=== PATIENT | male | born 1935 | race Caucasian/White ===

== ENCOUNTER 2018-02-15 03:39 | Day surgery (SDC) | payer OTHER, MEDICARE ==
[~2018-02-15] VITALS: Ht 177.8 cm; Wt 89.0 kg
[~2018-02-15 03:39] MED LIST: ACET120S; AMIO200 PO; AMOX500 PO; ASPI81CH PO; ASPI81EC PO; ATEN25 PO; Acetaminophen1 EAC2 PO; B Complex1 EAC2 PO; CEFP200 PO; CEPH500 PO; CYCL0.05OP; Coumadin2.5 MG PO; DRON400T; Desyrel50 MG PO; FENO160 PO; FINA5 PO; FISH1000 PO; GEMF600 PO; HYDACE5 PO; HYDACE7.5 PO; Hydrocodone-Ap1 EA23 PO; Jantoven5 MG PO; LEVSOD125 PO; LEVSOD175 PO; LEVSOD50 PO; LORA.5 PO; MESA400ER; MIRT15 PO; OXYB5 PO; OXYB5ER PO; PRAV20; PRAV20 PO; PRED10 PO; PRED20 PO; PRED5; Pravachol40 MG PO; REMICADE; REMICADE IV; Remicade100 MG; Synthroid100 MCG PO; Synthroid112 MCG PO; TAMS.4ER PO; TRAZ100 PO; TRAZ50 PO; TYLENOL ES; Tylenol325 MG PO; UBID10; UBID100 PO; VITAMIN D-32000 UNIT PO; WARF1 PO; WARF2.5 PO; WARF5 PO; ZALE5 PO; [UNRECOGNIZED DRUG - OTHER]; [UNRECOGNIZED DRUG - REMARK]
== END 2018-02-15 11:30 | disposition home or self-care (01) ==
LOC: MHTC 03:39
PROC: 0JPT0PZ Removal of Cardiac Rhythm Related Device from Trunk Subcutaneous Tissue and Fascia, Open Approach (ICD-10-PCS; principal; 2018-02-15)
PROC: 0JH606Z Insertion of Pacemaker, Dual Chamber into Chest Subcutaneous Tissue and Fascia, Open Approach (ICD-10-PCS; principal; 2018-02-15)
DX: Z45.010 Encounter for checking and testing of cardiac pacemaker pulse generator [battery] (principal); I49.5 Sick sinus syndrome; I48.0 Paroxysmal atrial fibrillation; E78.5 Hyperlipidemia, unspecified; E03.9 Hypothyroidism, unspecified; Z79.82 Long term (current) use of aspirin; Z87.891 Personal history of nicotine dependence
CPT/HCPCS: 33228; 99152; 99153; C1785; J1644; J2250; J3010; J3370; J7030; J7040

== ENCOUNTER 2020-05-09 07:14 | Emergency (ER) | payer OTHER, MEDICARE ==
[~2020-05-09] VITALS: Ht 180.3 cm; Wt 81.7 kg
[2020-05-09 07:41] LABS: Base Excess Venous 0 mmol/L; Bicarbonate Venous 24.4 mmol/L (24.0-30.0); PCO2 Venous 29.6 mmHg (38-42); PO2 Venous 24.9 mmHg (38-42)
[2020-05-09 07:50] LABS: BASOPHILS ABSOLUTE AUTO 0.06 K/mm3 (0.00-0.23); BASOPHILS PERCENT AUTO 1 % (0-2); EOSINOPHILS ABSOLUTE AUTO 0.17 K/mm3 (0.00-0.68); EOSINOPHILS PERCENT AUTO 2 % (0-6); Hematocrit 44.1 % (37.0-53.0); Hemoglobin 15.5 g/dL (13.5-17.5); IMMATURE GRAN ABSOLUTE AUTO 0.02 K/mm3 (0.00-0.10); IMMATURE GRAN PERCENT AUTO 0 % (0-1); LYMPHOCYTES ABSOLUTE AUTO 1.91 K/mm3 (0.84-5.20); LYMPHOCYTES PERCENT AUTO 24 % (21-46); MONOCYTES ABSOLUTE AUTO 0.64 K/mm3 (0.16-1.47); MONOCYTES PERCENT AUTO 8 % (4-13); Mean Corpuscular HGB 33.2 pg (26.0-34.0); Mean Corpuscular HGB Conc 35.1 g/dL (31.5-36.5); Mean Corpuscular Volume 94 fL (80-100); Mean Platelet Volume 9.6 fL (9.1-12.4); NEUTROPHILS ABSOLUTE AUTO 5.18 K/mm3 (1.96-9.15); NEUTROPHILS PERCENT AUTO 65 % (41-73); Platelet Count 254 K/mm3 (150-400); RDW Coefficient Variation 12.7 % (11.7-14.2); RDW Standard Deviation 43.4 fL (35.1-46.3); Red Blood Cell Count 4.67 M/mm3 (4.30-5.90); White Blood Cell Count 7.98 K/mm3 (4.00-11.30)
[2020-05-09 08:58] LABS: Troponin I <0.015 ng/mL (0.000-0.040)
[2020-05-09 09:02] LABS: Alanine Aminotransfer (ALT/SGP 24 U/L (12-78); Albumin, Blood 4.3 g/dL (3.4-5.0); Albumin/Globulin Ratio 0.9 (0.8-1.8); Alk Phos 112 U/L (50-136); Anion Gap 8 mmol/L (6-16); Aspartate Aminotrans (AST/SGOT 21 U/L (12-37); Bilirubin, Total 0.6 mg/dL (0.1-1.0); Blood Urea Nitrogen 30 mg/dL (8-24); Bun/Creatinine Ratio 33.9 (12.0-20.0); CO2, Blood 25 mmol/L (21-32); Calcium, Blood 9.5 mg/dL (8.5-10.1); Chloride, Blood 105 mmol/L (98-108); Creatinine, Blood 0.89 mg/dL (0.60-1.20); Globulin, Blood 4.7 g/dL (2.2-4.0); Glomerular Filtration Rate >60 (60-); Glucose, Blood 101 mg/dL (70-99); Potassium, Blood 3.7 mmol/L (3.5-5.5); Sodium, Blood 138 mmol/L (136-145)
[2020-05-09] MEDS ORDERED: HYDHCL25 PO (12:26)
== END 2020-05-09 12:19 | disposition home or self-care (01) ==
LOC: ER 07:14
PROVIDERS: Emergency Medicine
DX: R55 Syncope and collapse (principal); R00.2 Palpitations; F41.9 Anxiety disorder, unspecified; R06.02 Shortness of breath; R20.2 Paresthesia of skin; Z91.041 Radiographic dye allergy status; Z88.8 Allergy status to other drugs, medicaments and biological substances; Z88.2 Allergy status to sulfonamides; Z88.1 Allergy status to other antibiotic agents; Z79.899 Other long term (current) drug therapy; Z79.01 Long term (current) use of anticoagulants; Z95.1 Presence of aortocoronary bypass graft; Z87.891 Personal history of nicotine dependence
CPT/HCPCS: 36415; 71045; 71260; 80053; 82803; 83880; 84484; 85025; 93005; 93010; 96374; 96375; 99285-25; J1100; J1200; Q9967

== ENCOUNTER 2021-03-30 17:44 | Emergency (ER) | payer OTHER, MEDICARE ==
[~2021-03-30] VITALS: Ht 180.3 cm; Wt 85.5 kg
[~2021-03-30 17:44] MED LIST changes: +HYDHCL25 PO
[2021-03-30 18:34] LABS: BASOPHILS ABSOLUTE AUTO 0.04 K/mm3 (0.00-0.23); BASOPHILS PERCENT AUTO 1 % (0-2); EOSINOPHILS ABSOLUTE AUTO 0.17 K/mm3 (0.00-0.68); EOSINOPHILS PERCENT AUTO 2 % (0-6); Hematocrit 38.8 % (37.0-53.0); Hemoglobin 13.8 g/dL (13.5-17.5); IMMATURE GRAN ABSOLUTE AUTO 0.05 K/mm3 (0.00-0.10); IMMATURE GRAN PERCENT AUTO 1 % (0-1); LYMPHOCYTES ABSOLUTE AUTO 0.89 K/mm3 (0.84-5.20); LYMPHOCYTES PERCENT AUTO 10 % (21-46); MONOCYTES ABSOLUTE AUTO 0.86 K/mm3 (0.16-1.47); MONOCYTES PERCENT AUTO 10 % (4-13); Mean Corpuscular HGB 33.5 pg (26.0-34.0); Mean Corpuscular HGB Conc 35.6 g/dL (31.5-36.5); Mean Corpuscular Volume 94 fL (80-100); Mean Platelet Volume 10.2 fL (9.1-12.4); NEUTROPHILS ABSOLUTE AUTO 6.65 K/mm3 (1.96-9.15); NEUTROPHILS PERCENT AUTO 77 % (41-73); Platelet Count 282 K/mm3 (150-400); RDW Coefficient Variation 12.2 % (11.7-14.2); RDW Standard Deviation 42.5 fL (35.1-46.3); Red Blood Cell Count 4.12 M/mm3 (4.30-5.90); White Blood Cell Count 8.66 K/mm3 (4.00-11.30)
[2021-03-30 18:51] LABS: Alanine Aminotransfer (ALT/SGP 98 U/L (12-78); Albumin, Blood 2.7 g/dL (3.4-5.0); Albumin/Globulin Ratio 0.5 (0.8-1.8); Alk Phos 90 U/L (50-136); Anion Gap 11 mmol/L (6-16); Aspartate Aminotrans (AST/SGOT 108 U/L (12-37); Bilirubin, Total 0.6 mg/dL (0.1-1.0); Blood Urea Nitrogen 19 mg/dL (8-24); Bun/Creatinine Ratio 19.4 (12.0-20.0); CO2, Blood 23 mmol/L (21-32); Chloride, Blood 102 mmol/L (98-108); Creatinine, Blood 0.98 mg/dL (0.60-1.20); Globulin, Blood 5.6 g/dL (2.2-4.0); Glomerular Filtration Rate >60 (60-); Glucose, Blood 122 mg/dL (70-99); Potassium, Blood 3.5 mmol/L (3.5-5.5); Sodium, Blood 136 mmol/L (136-145); Total Protein, Blood 8.3 g/dL (6.4-8.2); Troponin I <0.015 ng/mL (0.000-0.040)
[2021-03-30 19:58] LABS: Source, Urine Clean Catch
[2021-03-30 20:14] LABS: Appearance, Urine Clear (Clear); Bilirubin, Urine Neg (Neg); Blood, Urine 4+ (Neg); Color, Urine Yellow (P-Yellow); Glucose Qualitative, Urine Neg (Neg); International Normalized Ratio 3.46; Ketones, Urine Neg (Neg); Leukocyte Esterase, Urine Neg (Neg); Nitrite, Urine Neg (Neg); Protein, Urine 3+ (Neg); Prothrombin Time Results 34.8 Sec (9.7-11.5); Urobilinogen, Urine NORM (Normal)
[2021-03-30 20:23] LABS: White Blood Cells, Urine 0-2 /hpf (0-5)
[2021-03-30 20:25] LABS: Bacteria Rare /hpf; Squamous Epithelial Cells Rare /hpf (Few)
[2021-03-30 20:27] LABS: Mucus Mod (0-Heavy)
[2021-03-30] MEDS ORDERED: DOXY100 PO (21:13)
[2021-03-30] MEDS ORDERED: AMOCLA875 PO (21:13)
[2021-03-30] MEDS ORDERED: ONDA4ODT MM (21:13)
== END 2021-03-30 21:29 | disposition home or self-care (01) ==
LOC: ER 17:44
PROVIDERS: Physician Assistant; Student in an Organized Health Care Education/Training Program
DX: J18.9 Pneumonia, unspecified organism (principal); C34.90 Malignant neoplasm of unspecified part of unspecified bronchus or lung; I47.1 Supraventricular tachycardia; R79.1 Abnormal coagulation profile; E86.0 Dehydration; I25.10 Atherosclerotic heart disease of native coronary artery without angina pectoris; I48.91 Unspecified atrial fibrillation; R31.29 Other microscopic hematuria; Z79.01 Long term (current) use of anticoagulants; Z79.899 Other long term (current) drug therapy
CPT/HCPCS: 36415; 71045; 71250; 80053; 81001; 83605; 83735; 83880; 84484; 85025; 85610; 93005; 93010; 96361; 96374; 99285-25; A9270; J3475; J7030

== ENCOUNTER 2021-04-26 04:24 | Inpatient (IN) | payer OTHER, MEDICARE ==
[~2021-04-26] VITALS: Ht 180.3 cm; Wt 85.0 kg
[~2021-04-26 04:24] MED LIST changes: +AMOCLA875 PO; +DOXY100 PO; +EUTHYROX125 MCG PO; -LEVSOD125 PO; +ONDA4ODT MM; -Pravachol40 MG PO
[2021-04-26 04:47] LABS: BASOPHILS ABSOLUTE AUTO 0.01 K/mm3 (0.00-0.23); BASOPHILS PERCENT AUTO 0 % (0-2); EOSINOPHILS ABSOLUTE AUTO 0.05 K/mm3 (0.00-0.68); EOSINOPHILS PERCENT AUTO 1 % (0-6); Hematocrit 45.6 % (37.0-53.0); Hemoglobin 15.9 g/dL (13.5-17.5); IMMATURE GRAN ABSOLUTE AUTO 0.09 K/mm3 (0.00-0.10); IMMATURE GRAN PERCENT AUTO 1 % (0-1); LYMPHOCYTES ABSOLUTE AUTO 0.45 K/mm3 (0.84-5.20); LYMPHOCYTES PERCENT AUTO 5 % (21-46); MONOCYTES ABSOLUTE AUTO 0.24 K/mm3 (0.16-1.47); MONOCYTES PERCENT AUTO 3 % (4-13); Mean Corpuscular HGB Conc 34.9 g/dL (31.5-36.5); Mean Corpuscular Volume 95 fL (80-100); Mean Platelet Volume 10.4 fL (9.1-12.4); NEUTROPHILS ABSOLUTE AUTO 7.98 K/mm3 (1.96-9.15); NEUTROPHILS PERCENT AUTO 91 % (41-73); Platelet Count 300 K/mm3 (150-400); RDW Coefficient Variation 13.7 % (11.7-14.2); RDW Standard Deviation 47.6 fL (35.1-46.3); Red Blood Cell Count 4.82 M/mm3 (4.30-5.90); White Blood Cell Count 8.82 K/mm3 (4.00-11.30)
[2021-04-26] MEDS ORDERED: PRED20 PO (04:50)
[2021-04-26 04:55] LABS: PCO2 Arterial 29.6 mmHg (35-45); PO2 Arterial 74.8 mmHg (80-100); pH Blood Arterial 7.54 (7.35-7.45)
[2021-04-26 05:07] LABS: Alanine Aminotransfer (ALT/SGP 75 U/L (12-78); Albumin, Blood 2.2 g/dL (3.4-5.0); Albumin/Globulin Ratio 0.4 (0.8-1.8); Alk Phos 112 U/L (50-136); Anion Gap 7 mmol/L (6-16); Aspartate Aminotrans (AST/SGOT 56 U/L (12-37); Bilirubin, Total 0.8 mg/dL (0.1-1.0); Blood Urea Nitrogen 24 mg/dL (8-24); Bun/Creatinine Ratio 32.6 (12.0-20.0); CO2, Blood 27 mmol/L (21-32); Chloride, Blood 102 mmol/L (98-108); Creatinine, Blood 0.74 mg/dL (0.60-1.20); Globulin, Blood 5.5 g/dL (2.2-4.0); Glomerular Filtration Rate >60 (60-); Glucose, Blood 134 mg/dL (70-99); Magnesium, Blood 2.4 mg/dL (1.6-2.4); Potassium, Blood 4.1 mmol/L (3.5-5.5); Sodium, Blood 136 mmol/L (136-145); Total Protein, Blood 7.7 g/dL (6.4-8.2); Troponin I <0.015 ng/mL (0.000-0.040)
[2021-04-26 05:17] LABS: Prothrombin Time Results 40.6 Sec (9.7-11.5)
[2021-04-26 05:19] LABS: International Normalized Ratio 4.25
[2021-04-26 06:59] LABS: SARS-Cov-2 (COVID-19) PCR, MMC NEGATIVE (NEGATIVE)
[2021-04-27 03:51] LABS: BASOPHILS ABSOLUTE AUTO 0.01 K/mm3 (0.00-0.23); BASOPHILS PERCENT AUTO 0 % (0-2); EOSINOPHILS PERCENT AUTO 0 % (0-6); Hematocrit 42.6 % (37.0-53.0); Hemoglobin 14.4 g/dL (13.5-17.5); IMMATURE GRAN PERCENT AUTO 1 % (0-1); LYMPHOCYTES ABSOLUTE AUTO 0.27 K/mm3 (0.84-5.20); LYMPHOCYTES PERCENT AUTO 3 % (21-46); MONOCYTES ABSOLUTE AUTO 0.16 K/mm3 (0.16-1.47); MONOCYTES PERCENT AUTO 2 % (4-13); Mean Corpuscular HGB 32.6 pg (26.0-34.0); Mean Corpuscular HGB Conc 33.8 g/dL (31.5-36.5); Mean Corpuscular Volume 96 fL (80-100); Mean Platelet Volume 9.8 fL (9.1-12.4); NEUTROPHILS ABSOLUTE AUTO 8.32 K/mm3 (1.96-9.15); NEUTROPHILS PERCENT AUTO 94 % (41-73); Platelet Count 274 K/mm3 (150-400); RDW Coefficient Variation 13.5 % (11.7-14.2); RDW Standard Deviation 47.8 fL (35.1-46.3); Red Blood Cell Count 4.42 M/mm3 (4.30-5.90); White Blood Cell Count 8.86 K/mm3 (4.00-11.30)
[2021-04-27 04:11] LABS: Prothrombin Time Results 41.3 Sec (9.7-11.5)
[2021-04-27 04:22] LABS: Alanine Aminotransfer (ALT/SGP 54 U/L (12-78); Albumin/Globulin Ratio 0.4 (0.8-1.8); Alk Phos 101 U/L (50-136); Anion Gap 6 mmol/L (6-16); Aspartate Aminotrans (AST/SGOT 27 U/L (12-37); Bilirubin, Total 0.4 mg/dL (0.1-1.0); Blood Urea Nitrogen 23 mg/dL (8-24); Bun/Creatinine Ratio 33.9 (12.0-20.0); CO2, Blood 28 mmol/L (21-32); Chloride, Blood 105 mmol/L (98-108); Creatinine, Blood 0.68 mg/dL (0.60-1.20); Glomerular Filtration Rate >60 (60-); Glucose, Blood 166 mg/dL (70-99); Potassium, Blood 3.8 mmol/L (3.5-5.5); Sodium, Blood 139 mmol/L (136-145)
[2021-04-27 04:28] LABS: International Normalized Ratio 4.33
[2021-04-28 05:10] LABS: International Normalized Ratio 2.82; Prothrombin Time Results 27.7 Sec (9.7-11.5)
[2021-04-28 08:14] LABS: BASOPHILS ABSOLUTE AUTO 0.01 K/mm3 (0.00-0.23); BASOPHILS PERCENT AUTO 0 % (0-2); EOSINOPHILS PERCENT AUTO 0 % (0-6); Hematocrit 42.1 % (37.0-53.0); IMMATURE GRAN ABSOLUTE AUTO 0.13 K/mm3 (0.00-0.10); IMMATURE GRAN PERCENT AUTO 1 % (0-1); LYMPHOCYTES ABSOLUTE AUTO 0.28 K/mm3 (0.84-5.20); LYMPHOCYTES PERCENT AUTO 3 % (21-46); MONOCYTES ABSOLUTE AUTO 0.28 K/mm3 (0.16-1.47); MONOCYTES PERCENT AUTO 3 % (4-13); Mean Corpuscular HGB Conc 33.3 g/dL (31.5-36.5); Mean Corpuscular Volume 96 fL (80-100); Mean Platelet Volume 9.7 fL (9.1-12.4); NEUTROPHILS ABSOLUTE AUTO 10.44 K/mm3 (1.96-9.15); NEUTROPHILS PERCENT AUTO 94 % (41-73); Platelet Count 308 K/mm3 (150-400); RDW Coefficient Variation 13.5 % (11.7-14.2); RDW Standard Deviation 47.9 fL (35.1-46.3); Red Blood Cell Count 4.37 M/mm3 (4.30-5.90); White Blood Cell Count 11.14 K/mm3 (4.00-11.30)
[2021-04-28 08:29] LABS: Anion Gap 5 mmol/L (6-16); Blood Urea Nitrogen 26 mg/dL (8-24); CO2, Blood 28 mmol/L (21-32); Calcium, Blood 8.6 mg/dL (8.5-10.1); Chloride, Blood 106 mmol/L (98-108); Creatinine, Blood 0.67 mg/dL (0.60-1.20); Glomerular Filtration Rate >60 (60-); Glucose, Blood 144 mg/dL (70-99); Potassium, Blood 3.8 mmol/L (3.5-5.5); Sodium, Blood 139 mmol/L (136-145)
[2021-04-28 09:48] LABS: Magnesium, Blood 2.6 mg/dL (1.6-2.4); Phosphorus, Blood 2.9 mg/dL (2.5-4.9)
[2021-04-29 04:49] LABS: International Normalized Ratio 2.86
[2021-04-29 08:10] LABS: HBSAG SCREEN Negative (Negative)
[2021-04-29 10:32] LABS: Magnesium, Blood 2.6 mg/dL (1.6-2.4); Phosphorus, Blood 2.9 mg/dL (2.5-4.9)
[2021-04-29 22:57] LABS: Source, Urine Catheter
[2021-04-29 23:01] LABS: Bilirubin, Urine Neg (Neg); Blood, Urine 4+ (Neg); Glucose Qualitative, Urine Neg (Neg); Ketones, Urine Neg (Neg); Leukocyte Esterase, Urine 1+ (Neg); Nitrite, Urine Neg (Neg); Protein, Urine 1+ (Neg); Specific Gravity, Urine 1.025 (1.003-1.022); Urobilinogen, Urine NORM (Normal)
[2021-04-29 23:14] LABS: Appearance, Urine Clear (Clear); Color, Urine Yellow (P-Yellow)
[2021-04-29 23:15] LABS: Bacteria Rare /hpf; Red Blood Cells, Urine 50-100 /hpf (0-2); Squamous Epithelial Cells Few /hpf (Few)
[2021-04-30 04:12] LABS: Anion Gap 3 mmol/L (6-16); Blood Urea Nitrogen 32 mg/dL (8-24); Bun/Creatinine Ratio 46.4 (12.0-20.0); CO2, Blood 32 mmol/L (21-32); Calcium, Blood 8.7 mg/dL (8.5-10.1); Chloride, Blood 102 mmol/L (98-108); Creatinine, Blood 0.69 mg/dL (0.60-1.20); Glomerular Filtration Rate >60 (60-); Glucose, Blood 159 mg/dL (70-99); Potassium, Blood 5.1 mmol/L (3.5-5.5); Sodium, Blood 137 mmol/L (136-145)
[2021-04-30 04:17] LABS: Prothrombin Time Results 57.4 Sec (9.7-11.5)
[2021-04-30 04:30] LABS: International Normalized Ratio 6.16
[2021-05-01 05:14] LABS: Prothrombin Time Results 68.3 Sec (9.7-11.5)
[2021-05-01 05:27] LABS: International Normalized Ratio 7.42
[2021-05-01 08:19] LABS: Anion Gap 3 mmol/L (6-16); Blood Urea Nitrogen 26 mg/dL (8-24); Bun/Creatinine Ratio 40.8 (12.0-20.0); CO2, Blood 32 mmol/L (21-32); Calcium, Blood 8.5 mg/dL (8.5-10.1); Chloride, Blood 102 mmol/L (98-108); Creatinine, Blood 0.64 mg/dL (0.60-1.20); Glomerular Filtration Rate >60 (60-); Glucose, Blood 116 mg/dL (70-99); Magnesium, Blood 2.7 mg/dL (1.6-2.4); Potassium, Blood 3.9 mmol/L (3.5-5.5); Sodium, Blood 137 mmol/L (136-145)
[2021-05-02 08:25] LABS: International Normalized Ratio 3.79; Prothrombin Time Results 36.5 Sec (9.7-11.5)
[2021-05-02 16:11] LABS: QUANTIFERON NIL VALUE 0.02 IU/mL (.); QUANTIFERON TB1 AG VALUE 0.03 IU/mL (.); QUANTIFERON TB2 AG VALUE 0.03 IU/mL (.); QUANTIFERON-TB GOLD PLUS Negative (Negative)
[2021-05-03 05:44] LABS: BASOPHILS ABSOLUTE AUTO 0.05 K/mm3 (0.00-0.23); BASOPHILS PERCENT AUTO 0 % (0-2); EOSINOPHILS PERCENT AUTO 0 % (0-6); Hematocrit 46.2 % (37.0-53.0); Hemoglobin 15.8 g/dL (13.5-17.5); IMMATURE GRAN ABSOLUTE AUTO 0.36 K/mm3 (0.00-0.10); IMMATURE GRAN PERCENT AUTO 3 % (0-1); LYMPHOCYTES ABSOLUTE AUTO 0.36 K/mm3 (0.84-5.20); LYMPHOCYTES PERCENT AUTO 3 % (21-46); MONOCYTES PERCENT AUTO 4 % (4-13); Mean Corpuscular HGB 32.9 pg (26.0-34.0); Mean Corpuscular HGB Conc 34.2 g/dL (31.5-36.5); Mean Corpuscular Volume 96 fL (80-100); Mean Platelet Volume 9.8 fL (9.1-12.4); NEUTROPHILS ABSOLUTE AUTO 12.05 K/mm3 (1.96-9.15); NEUTROPHILS PERCENT AUTO 90 % (41-73); Platelet Count 360 K/mm3 (150-400); RDW Coefficient Variation 13.3 % (11.7-14.2); RDW Standard Deviation 47.8 fL (35.1-46.3); White Blood Cell Count 13.32 K/mm3 (4.00-11.30)
[2021-05-03 06:04] LABS: International Normalized Ratio 2.99; Prothrombin Time Results 29.2 Sec (9.7-11.5)
[2021-05-03 06:12] LABS: Anion Gap 4 mmol/L (6-16); Blood Urea Nitrogen 29 mg/dL (8-24); CO2, Blood 30 mmol/L (21-32); Calcium, Blood 8.7 mg/dL (8.5-10.1); Chloride, Blood 103 mmol/L (98-108); Creatinine, Blood 0.64 mg/dL (0.60-1.20); Glomerular Filtration Rate >60 (60-); Glucose, Blood 141 mg/dL (70-99); Potassium, Blood 4.7 mmol/L (3.5-5.5); Sodium, Blood 137 mmol/L (136-145)
[2021-05-04 05:29] LABS: BASOPHILS ABSOLUTE AUTO 0.05 K/mm3 (0.00-0.23); BASOPHILS PERCENT AUTO 0 % (0-2); EOSINOPHILS PERCENT AUTO 0 % (0-6); Hemoglobin 16.3 g/dL (13.5-17.5); IMMATURE GRAN ABSOLUTE AUTO 0.44 K/mm3 (0.00-0.10); IMMATURE GRAN PERCENT AUTO 3 % (0-1); LYMPHOCYTES ABSOLUTE AUTO 0.46 K/mm3 (0.84-5.20); LYMPHOCYTES PERCENT AUTO 3 % (21-46); MONOCYTES PERCENT AUTO 3 % (4-13); Mean Corpuscular HGB 32.6 pg (26.0-34.0); Mean Corpuscular Volume 96 fL (80-100); NEUTROPHILS ABSOLUTE AUTO 13.08 K/mm3 (1.96-9.15); NEUTROPHILS PERCENT AUTO 90 % (41-73); Platelet Count 336 K/mm3 (150-400); RDW Coefficient Variation 13.4 % (11.7-14.2); RDW Standard Deviation 47.4 fL (35.1-46.3); White Blood Cell Count 14.53 K/mm3 (4.00-11.30)
[2021-05-04 05:39] LABS: International Normalized Ratio 2.45; Prothrombin Time Results 24.3 Sec (9.7-11.5)
[2021-05-04 06:18] LABS: Anion Gap 4 mmol/L (6-16); Blood Urea Nitrogen 30 mg/dL (8-24); Bun/Creatinine Ratio 48.7 (12.0-20.0); CO2, Blood 30 mmol/L (21-32); Chloride, Blood 103 mmol/L (98-108); Creatinine, Blood 0.62 mg/dL (0.60-1.20); Glomerular Filtration Rate >60 (60-); Glucose, Blood 182 mg/dL (70-99); Potassium, Blood 4.3 mmol/L (3.5-5.5); Sodium, Blood 137 mmol/L (136-145)
[2021-05-04] MEDS ORDERED: MELATONIN5 M1 PO (15:09)
[2021-05-04] MEDS ORDERED: METO25 PO (15:10)
[2021-05-04] MEDS ORDERED: MIRALAX17 GM PO (15:11)
[2021-05-04] MEDS ORDERED: POTCHL20ER PO (15:13)
[2021-05-04] MEDS ORDERED: PRAV20 PO (15:14)
[2021-05-04] MEDS ORDERED: NASAL SPRAY88 ML (15:16)
[2021-05-04] MEDS ORDERED: ATOVAQUONE750 MG/51 PO (15:25)
[2021-05-04] MEDS ORDERED: PRED20 PO (15:27)
== END 2021-05-04 16:25 | disposition home health service (06) | DRG 205 ==
LOC: ER 04:24 → ERHOLD 06:35 → PCU 06:35 → MEDS 05-01 14:59 → ENPENDDIS 05-04 14:36 → MEDS 05-04 16:25
PROVIDERS: Family Medicine; Internal Medicine; Student in an Organized Health Care Education/Training Program; ADMIT Internal Medicine
DX: J70.4 Drug-induced interstitial lung disorders, unspecified (principal); J96.01 Acute respiratory failure with hypoxia; E87.3 Alkalosis; C34.11 Malignant neoplasm of upper lobe, right bronchus or lung; K51.90 Ulcerative colitis, unspecified, without complications; I47.2 Ventricular tachycardia; T45.1X5A Adverse effect of antineoplastic and immunosuppressive drugs, initial encounter; I25.10 Atherosclerotic heart disease of native coronary artery without angina pectoris; I48.91 Unspecified atrial fibrillation; I49.5 Sick sinus syndrome; Z20.822 Contact with and (suspected) exposure to COVID-19; F51.04 Psychophysiologic insomnia; K21.9 Gastro-esophageal reflux disease without esophagitis; I48.0 Paroxysmal atrial fibrillation; E03.9 Hypothyroidism, unspecified; K59.09 Other constipation; R79.1 Abnormal coagulation profile; E78.5 Hyperlipidemia, unspecified; G47.33 Obstructive sleep apnea (adult) (pediatric); Z88.8 Allergy status to other drugs, medicaments and biological substances; Z88.1 Allergy status to other antibiotic agents; Z91.041 Radiographic dye allergy status; Z95.0 Presence of cardiac pacemaker; Z95.1 Presence of aortocoronary bypass graft; Z98.890 Other specified postprocedural states; Z79.01 Long term (current) use of anticoagulants; Z79.899 Other long term (current) drug therapy; Z79.52 Long term (current) use of systemic steroids; Z87.891 Personal history of nicotine dependence
CPT/HCPCS: 36415; 36600; 71045; 71046; 71250; 78580; 80048; 80053; 81001; 82803; 83735; 83880; 84100; 84145; 84443; 84484; 85025; 85610; 86480; 87070; 87205; 87340; 88108; 88312; 93005; 93010; 93306; 94640; 94644; 94761; 94762; 96365; 96375; 97110; 97116; 97162; 97166; 97530; 99285-25; A9270; A9540; C1751; J0360; J1745; J1940; J1956; J2060; J2543; J2930; J3370; J7030; J7050; U0004

== ENCOUNTER → 2021-05-08 | Outpatient (CLI) | payer OTHER, MEDICARE ==
[~2021-05-08] MED LIST changes: +ATOVAQUONE750 MG/51 PO; +FOLI1 PO; +MELATONIN5 M1 PO; +METO25 PO; +MIRALAX17 GM PO; +NASAL SPRAY88 ML; +NYSTRIT TOP; +POTCHL20ER PO
[2021-05-08 10:08] LABS: BASOPHILS ABSOLUTE AUTO 0.07 K/mm3 (0.00-0.23); BASOPHILS PERCENT AUTO 0 % (0-2); EOSINOPHILS ABSOLUTE AUTO 0.04 K/mm3 (0.00-0.68); EOSINOPHILS PERCENT AUTO 0 % (0-6); Hematocrit 46.6 % (37.0-53.0); Hemoglobin 15.7 g/dL (13.5-17.5); IMMATURE GRAN ABSOLUTE AUTO 0.53 K/mm3 (0.00-0.10); IMMATURE GRAN PERCENT AUTO 3 % (0-1); LYMPHOCYTES ABSOLUTE AUTO 0.59 K/mm3 (0.84-5.20); LYMPHOCYTES PERCENT AUTO 4 % (21-46); MONOCYTES PERCENT AUTO 3 % (4-13); Mean Corpuscular HGB 32.6 pg (26.0-34.0); Mean Corpuscular HGB Conc 33.7 g/dL (31.5-36.5); Mean Corpuscular Volume 97 fL (80-100); Mean Platelet Volume 10.8 fL (9.1-12.4); NEUTROPHILS PERCENT AUTO 89 % (41-73); Platelet Count 211 K/mm3 (150-400); RDW Coefficient Variation 13.5 % (11.7-14.2); RDW Standard Deviation 47.9 fL (35.1-46.3); Red Blood Cell Count 4.81 M/mm3 (4.30-5.90); White Blood Cell Count 15.93 K/mm3 (4.00-11.30)
[2021-05-08 10:16] LABS: Alanine Aminotransfer (ALT/SGP 31 U/L (12-78); Albumin, Blood 2.2 g/dL (3.4-5.0); Albumin/Globulin Ratio 0.5 (0.8-1.8); Alk Phos 103 U/L (50-136); Anion Gap 7 mmol/L (6-16); Aspartate Aminotrans (AST/SGOT 29 U/L (12-37); Bilirubin, Total 0.5 mg/dL (0.1-1.0); Blood Urea Nitrogen 25 mg/dL (8-24); Bun/Creatinine Ratio 43.4 (12.0-20.0); CO2, Blood 25 mmol/L (21-32); Calcium, Blood 8.1 mg/dL (8.5-10.1); Chloride, Blood 106 mmol/L (98-108); Creatinine, Blood 0.58 mg/dL (0.60-1.20); Globulin, Blood 4.6 g/dL (2.2-4.0); Glomerular Filtration Rate >60 (60-); Glucose, Blood 111 mg/dL (70-99); Magnesium, Blood 2.2 mg/dL (1.6-2.4); Potassium, Blood 4.4 mmol/L (3.5-5.5); Sodium, Blood 138 mmol/L (136-145); Total Protein, Blood 6.8 g/dL (6.4-8.2)
== END | disposition home or self-care (01) ==
LOC: LAB SHORT 08:49 → LAB HH 08:49
PROVIDERS: Pediatrics Pediatric Nephrology
DX: C34.31 Malignant neoplasm of lower lobe, right bronchus or lung (principal); E83.41 Hypermagnesemia
CPT/HCPCS: 80053; 83735; 85025

== ENCOUNTER 2021-05-10 09:19 | Inpatient (IN) | payer OTHER, MEDICARE ==
[~2021-05-10] VITALS: Ht 177.8 cm; Wt 73.8 kg
[~2021-05-10 09:19] MED LIST changes: -FOLI1 PO; -NYSTRIT TOP
[2021-05-10 09:53] LABS: Base Excess Venous 6.1 mmol/L; Bicarbonate Venous 27.7 mmol/L (24.0-30.0); PCO2 Venous 50.7 mmHg (38-42); PO2 Venous 42.6 mmHg (38-42)
[2021-05-10 09:58] LABS: BASOPHILS ABSOLUTE AUTO 0.08 K/mm3 (0.00-0.23); BASOPHILS PERCENT AUTO 1 % (0-2); EOSINOPHILS ABSOLUTE AUTO 0.05 K/mm3 (0.00-0.68); EOSINOPHILS PERCENT AUTO 0 % (0-6); Hematocrit 51.8 % (37.0-53.0); Hemoglobin 17.5 g/dL (13.5-17.5); IMMATURE GRAN ABSOLUTE AUTO 0.43 K/mm3 (0.00-0.10); IMMATURE GRAN PERCENT AUTO 3 % (0-1); LYMPHOCYTES ABSOLUTE AUTO 0.98 K/mm3 (0.84-5.20); LYMPHOCYTES PERCENT AUTO 8 % (21-46); MONOCYTES ABSOLUTE AUTO 0.56 K/mm3 (0.16-1.47); MONOCYTES PERCENT AUTO 4 % (4-13); Mean Corpuscular HGB 32.6 pg (26.0-34.0); Mean Corpuscular HGB Conc 33.8 g/dL (31.5-36.5); Mean Corpuscular Volume 97 fL (80-100); Mean Platelet Volume 10.7 fL (9.1-12.4); NEUTROPHILS ABSOLUTE AUTO 10.76 K/mm3 (1.96-9.15); NEUTROPHILS PERCENT AUTO 84 % (41-73); Platelet Count 197 K/mm3 (150-400); RDW Coefficient Variation 13.6 % (11.7-14.2); RDW Standard Deviation 48.1 fL (35.1-46.3); Red Blood Cell Count 5.37 M/mm3 (4.30-5.90); White Blood Cell Count 12.86 K/mm3 (4.00-11.30)
[2021-05-10 10:20] LABS: Alanine Aminotransfer (ALT/SGP 36 U/L (12-78); Albumin, Blood 2.6 g/dL (3.4-5.0); Albumin/Globulin Ratio 0.5 (0.8-1.8); Alk Phos 108 U/L (50-136); Anion Gap 5 mmol/L (6-16); Aspartate Aminotrans (AST/SGOT 30 U/L (12-37); Bilirubin, Total 0.7 mg/dL (0.1-1.0); Blood Urea Nitrogen 26 mg/dL (8-24); Bun/Creatinine Ratio 40.8 (12.0-20.0); CO2, Blood 30 mmol/L (21-32); Calcium, Blood 8.9 mg/dL (8.5-10.1); Chloride, Blood 102 mmol/L (98-108); Creatinine, Blood 0.64 mg/dL (0.60-1.20); Globulin, Blood 4.8 g/dL (2.2-4.0); Glomerular Filtration Rate >60 (60-); Glucose, Blood 121 mg/dL (70-99); Potassium, Blood 3.9 mmol/L (3.5-5.5); Sodium, Blood 137 mmol/L (136-145); Total Protein, Blood 7.4 g/dL (6.4-8.2); Troponin I <0.015 ng/mL (0.000-0.040)
[2021-05-10 10:28] LABS: International Normalized Ratio 1.64; Prothrombin Time Results 16.7 Sec (9.7-11.5)
[2021-05-10 14:53] LABS: SARS-Cov-2 (COVID-19) PCR, MMC NEGATIVE (NEGATIVE)
[2021-05-10] MEDS ORDERED: FOLI1 PO (15:15)
[2021-05-10] MEDS ORDERED: NYSTRIT TOP (17:04)
[2021-05-10] MEDS ORDERED: WARF5 PO (18:13)
[2021-05-10] MEDS ORDERED: WARF2.5 PO (18:13)
--- NOTE | 2021-05-10 18:52 | NUR ---
SHIFT NOTE: PT IS A&O,PLEASANT WITH CARES. PT ARRIVED TO FLOOR ON 10L OXYGEN NONREBREATHER MASK, TRANSITIONED TO OXYMIZER AND TITRATED DOWN TO 5l.PT COMPLAINS OF SOB WITH EXCERTION, BUT NOT AT REST. TELE: AFIB, RATE MAINLY WAS IN 100-110S, BUT DID SUSTAIN IN 120-130S BRIEFLY. DIRECTOR OF MARKETING [employer] ADS NOTIFIED. PT HAS SCHEDULED METOPROLOL BID. IV SOLUMEDROL GIVEN PER ORDERS. GOOD APPETITE. VANCO AND LEVAQUIN GIVEN PER ORDERS. CONTINUOUS FLUIDS WERE D/C PER ORDERS. CRACKLES HEARD IN LOWER LOBES. WARFARIN GIVEN PER ORDERS. WOUND ON COCCYX PRESENT AT ADMISSION. CREAM AND MEPALEX APPLIED.
[2021-05-11 04:01] LABS: BASOPHILS ABSOLUTE AUTO 0.02 K/mm3 (0.00-0.23); BASOPHILS PERCENT AUTO 0 % (0-2); EOSINOPHILS PERCENT AUTO 0 % (0-6); Hematocrit 42.9 % (37.0-53.0); Hemoglobin 14.7 g/dL (13.5-17.5); IMMATURE GRAN ABSOLUTE AUTO 0.28 K/mm3 (0.00-0.10); IMMATURE GRAN PERCENT AUTO 3 % (0-1); LYMPHOCYTES ABSOLUTE AUTO 0.37 K/mm3 (0.84-5.20); LYMPHOCYTES PERCENT AUTO 4 % (21-46); MONOCYTES ABSOLUTE AUTO 0.18 K/mm3 (0.16-1.47); MONOCYTES PERCENT AUTO 2 % (4-13); Mean Corpuscular HGB 32.8 pg (26.0-34.0); Mean Corpuscular HGB Conc 34.3 g/dL (31.5-36.5); Mean Corpuscular Volume 96 fL (80-100); Mean Platelet Volume 10.6 fL (9.1-12.4); NEUTROPHILS ABSOLUTE AUTO 9.52 K/mm3 (1.96-9.15); NEUTROPHILS PERCENT AUTO 92 % (41-73); Platelet Count 168 K/mm3 (150-400); RDW Coefficient Variation 13.5 % (11.7-14.2); RDW Standard Deviation 47.7 fL (35.1-46.3); Red Blood Cell Count 4.48 M/mm3 (4.30-5.90); White Blood Cell Count 10.37 K/mm3 (4.00-11.30)
[2021-05-11 04:11] LABS: International Normalized Ratio 1.8; Prothrombin Time Results 18.2 Sec (9.7-11.5)
[2021-05-11 04:27] LABS: Anion Gap 8 mmol/L (6-16); Blood Urea Nitrogen 24 mg/dL (8-24); Bun/Creatinine Ratio 41.3 (12.0-20.0); CO2, Blood 26 mmol/L (21-32); Calcium, Blood 8.3 mg/dL (8.5-10.1); Chloride, Blood 105 mmol/L (98-108); Creatinine, Blood 0.58 mg/dL (0.60-1.20); Glomerular Filtration Rate >60 (60-); Glucose, Blood 145 mg/dL (70-99); Potassium, Blood 3.9 mmol/L (3.5-5.5); Sodium, Blood 139 mmol/L (136-145)
--- NOTE | 2021-05-11 06:34 | NUR ---
SHIFT SUMMARY PT ALERT AND ORIENTED X4. AFIB THROUGHOUT SHIFT, HR DECREASED FROM 110'S TO 60'S/70'S. ON 4L OXYMIZER. COARSE CRACKLES IN UPPER LOBES. PT ON CARDIAC DIET. IV ACCESS IN LEFT FOREARM SALINE LOCKED. VOIDING INDEPENDENTLY WITH BEDSIE URINAL. IN BED RESTING WITH CALL ALARM AT SIDE. WILL CONTINUE TO MONITOR UNTIL REPORT GIVEN
--- NOTE | 2021-05-11 14:17 | NUR ---
PT IS A&O ANXIOUS AT TIMES. TELE: AFIB 80-100S. PO METOPROLOL GIVEN PER ORDERS. PT ALSO TAKES WARFARIN. VQ STUDY COMPLETED THIS AFTERNOON, PENDING RESULTS. IV ABX CONTINUED PER ORDERS. LAST BM 05/09, PRN COLACE AND SENNA GIVEN. IV IN LEFT FORARM FLUSHING WELL. VSS ON 4-7L OXYMIZER, PT DESATURATES WHEN EATING. PT USING URINAL AT BEDSIDE INDEPENDENTLY. PT TRANSFERRED TO [facility] AFTER VQ SCAN, REPORT GIVEN TO
--- NOTE | 2021-05-11 17:28 | NUR ---
PT WAS A TRANSFER TODAY FROM THE PCU AT 1400, PT IS A/OX3 PLEASANT AND COOPERATIVE. PT IS BEDREST AT THIS TIME DUE TO SEVERE SOB, PT IS ON OXYGEN AT 5L/MIN VIA OXYMIZER. THE PT IS AT THE BEDSIDE. THE PT WAS ORIENTED TO THE ROOM CALL LIGHT. PT DENIES ANY PAIN AT THIS TIME CALL LIGHT IN REACH, WILL CONTINUE TO MONITOR AND ASSESS FOR CHANGES
--- NOTE | 2021-05-11 23:59 | NUR ---
SPOKE WITH DR SINGH 6 BEAT RUN OF [employer], PT WAS AFIB IN 90'S BEFORE AND IS BACK IN AFIB IN 90'S. PT IS ASYMPTOMATIC. GOT ORDERS TO CHECK PT'S MG LEVEL.
[2021-05-12 00:18] LABS: BASOPHILS ABSOLUTE AUTO 0.02 K/mm3 (0.00-0.23); BASOPHILS PERCENT AUTO 0 % (0-2); EOSINOPHILS PERCENT AUTO 0 % (0-6); Hematocrit 42.2 % (37.0-53.0); Hemoglobin 14.7 g/dL (13.5-17.5); IMMATURE GRAN ABSOLUTE AUTO 0.26 K/mm3 (0.00-0.10); IMMATURE GRAN PERCENT AUTO 2 % (0-1); LYMPHOCYTES ABSOLUTE AUTO 0.58 K/mm3 (0.84-5.20); LYMPHOCYTES PERCENT AUTO 4 % (21-46); MONOCYTES ABSOLUTE AUTO 0.55 K/mm3 (0.16-1.47); MONOCYTES PERCENT AUTO 3 % (4-13); Mean Corpuscular HGB 32.7 pg (26.0-34.0); Mean Corpuscular HGB Conc 34.8 g/dL (31.5-36.5); Mean Corpuscular Volume 94 fL (80-100); Mean Platelet Volume 10.6 fL (9.1-12.4); NEUTROPHILS ABSOLUTE AUTO 14.91 K/mm3 (1.96-9.15); NEUTROPHILS PERCENT AUTO 91 % (41-73); Platelet Count 168 K/mm3 (150-400); RDW Coefficient Variation 13.5 % (11.7-14.2); RDW Standard Deviation 46.6 fL (35.1-46.3); Red Blood Cell Count 4.49 M/mm3 (4.30-5.90); White Blood Cell Count 16.32 K/mm3 (4.00-11.30)
[2021-05-12 00:39] LABS: Prothrombin Time Results 43.7 Sec (9.7-11.5)
[2021-05-12 00:43] LABS: Albumin, Blood 2.2 g/dL (3.4-5.0); Anion Gap 6 mmol/L (6-16); Blood Urea Nitrogen 22 mg/dL (8-24); Bun/Creatinine Ratio 36.5 (12.0-20.0); CO2, Blood 26 mmol/L (21-32); Calcium, Blood 8.7 mg/dL (8.5-10.1); Chloride, Blood 106 mmol/L (98-108); Glomerular Filtration Rate >60 (60-); Glucose, Blood 143 mg/dL (70-99); Phosphorus, Blood 2.4 mg/dL (2.5-4.9); Potassium, Blood 4.1 mmol/L (3.5-5.5); Sodium, Blood 138 mmol/L (136-145)
[2021-05-12 00:44] LABS: International Normalized Ratio 4.6
--- NOTE | 2021-05-12 05:28 | NUR ---
SHIFT SUMMARY PT IS AN 85 Y/O MALE, ADMITTED FOR ACUTE ON CHRONIC RESPIRATORY FAILURE C HYPOXIA. HE IS A&O X 3, MILD FORGETFUL AT TIMES, BEDREST. CURRENTLY ON 5L VIA OXIMIZER. TELE SHOWED AFIB IN THE 90S, WITH A SIX-BEAT RUN OF V-TACH DURING THE NIGHT. HOSPITALIST DR HOLMAN NOTIFIED, AND PT'S MAGNESIUM CHECKED AND WAS NORMAL. VITAL SIGNS OTHERWISE STABLE. NO C/O ACUTE PAIN, NAUSEA OR SOB. NO ACUTE CHANGES IN PT CONDITION NOTED DURING THE NIGHT. WILL CONTINUE TO MONITOR AND TREAT PER EMAR UNTIL HAND OFF TO DAY SHIFT RN.
--- NOTE | 2021-05-12 16:53 | NUR ---
DAY SHIFT SUMMARY ALERT AND ORIENTED X3, BEDREST WITH NO TRANSFERING, BED SCHUMACHER AND URINAL. SOB, PT ON 5L O2 WITH OXIMIZER. REPORT OF VTACH DURING DENTAL HYGIENE TEACHER PER REPORT, PER MEGHAN ERNANDEZ PT TRENDED UP TO 150HR DURING LATE MORNING AND AVERAGING HR OF 82 REST OF DAY AND AFIB WITH PVCS. DENIES PAIN, DENIES NAUSEA, CALL LIGHT IN REACH, DAUGHTER AT BEDSIDE. CARDIAC CONSULT CALLED IN WITH DR. MCQUEEN. NEW ORDER FOR TOPROL ENTERED POST CONSULT. SPUTUM CULTURE ORDERED, BUT NONE WAS PRODUCED BY PT ON THIS SHIFT.
--- NOTE | 2021-05-13 03:29 | NUR ---
SHIFT SUMMARY A/OX3, PLEASANT AND COOPERATIVE WITH CARE. DENIES PAIN. 5L 02 VIA NC WITH SATS GREATER THAN 90. VSS, NO ACUTE CHANGES AT THIS TIME. BED IN LOWEST POSITION WITH CALL LIGHT IN REACH. WILL CONTINUE TO MONITOR AND REPORT TO ONCOMING RN.
[2021-05-13 04:55] LABS: BASOPHILS ABSOLUTE AUTO 0.05 K/mm3 (0.00-0.23); BASOPHILS PERCENT AUTO 0 % (0-2); EOSINOPHILS PERCENT AUTO 0 % (0-6); Hematocrit 43.5 % (37.0-53.0); Hemoglobin 14.7 g/dL (13.5-17.5); IMMATURE GRAN ABSOLUTE AUTO 0.22 K/mm3 (0.00-0.10); IMMATURE GRAN PERCENT AUTO 2 % (0-1); LYMPHOCYTES PERCENT AUTO 4 % (21-46); MONOCYTES ABSOLUTE AUTO 0.46 K/mm3 (0.16-1.47); MONOCYTES PERCENT AUTO 3 % (4-13); Mean Corpuscular HGB 32.5 pg (26.0-34.0); Mean Corpuscular HGB Conc 33.8 g/dL (31.5-36.5); Mean Corpuscular Volume 96 fL (80-100); Mean Platelet Volume 10.9 fL (9.1-12.4); NEUTROPHILS ABSOLUTE AUTO 12.67 K/mm3 (1.96-9.15); NEUTROPHILS PERCENT AUTO 91 % (41-73); Platelet Count 157 K/mm3 (150-400); RDW Coefficient Variation 13.6 % (11.7-14.2); RDW Standard Deviation 48.2 fL (35.1-46.3); Red Blood Cell Count 4.52 M/mm3 (4.30-5.90)
[2021-05-13 05:11] LABS: Albumin, Blood 2.1 g/dL (3.4-5.0); Anion Gap 8 mmol/L (6-16); Blood Urea Nitrogen 26 mg/dL (8-24); Bun/Creatinine Ratio 44.1 (12.0-20.0); CO2, Blood 24 mmol/L (21-32); Calcium, Blood 8.3 mg/dL (8.5-10.1); Chloride, Blood 106 mmol/L (98-108); Creatinine, Blood 0.59 mg/dL (0.60-1.20); Glomerular Filtration Rate >60 (60-); Glucose, Blood 151 mg/dL (70-99); Phosphorus, Blood 2.6 mg/dL (2.5-4.9); Potassium, Blood 3.8 mmol/L (3.5-5.5); Sodium, Blood 138 mmol/L (136-145)
[2021-05-13 05:27] LABS: Prothrombin Time Results 48.7 Sec (9.7-11.5)
[2021-05-13 05:29] LABS: International Normalized Ratio 5.16
--- NOTE | 2021-05-13 16:06 | NUR ---
VTACH/RESPIRATORY PT EPISODE OF VTACH FOR 13 BEATS PER TRIAL EXAMINER AT 1225, DR MOONEY NOTIFIED REPIRATORY THERAPIST CHANGED PATIENT FROM 5L O2 TO 2L WHEN IN WITH PT, 1515 PT REPORTS SOB WITH O2 AT 2L, O2 SAT AT 88-90, O2 BUMPED UP TO 3L AND O2 SAT CAME UP TO 95%. DR MOONEY MADE AWARE. DR MOONEY CAME IN TO SIT DOWN WITH PT AND ABOUT PLAN OF CARE.
--- NOTE | 2021-05-13 18:03 | NUR ---
SHIFT SUMMARY PT ONLY TELE WITH AFIB WITH PVCS AND HR IN 90S MOST OF DAY, AT 1225 PT HAD AN EPISODE OF VTACH FOR 13 BEATS PER PAPER CARRIER, LATER IN THE AFTERNOON AFTER RESPIRATORY THERAPIST TURNED O2 FROM 5L TO 2L PT HAD SOB WITH TROUBLE RECOVERING, O2 UPPED TO 3L AT THAT TIME. MD MOONEY NOTIFIED FOR BOTH EVENTS. ROUNDED ON PT WITH IN THE ROOM. MEDS CHANGED PER MD. PT RECEIVED IV INFUSION OF VIT K. AT DINNER PT REQUEST TO TURN O2 BACK UP TO 5L, APPROVED WITH RESPIRATORY THERAPIST. DENIES PAIN, SOB BETTER WITH 5L THROUGH NC, DENIES NAUSEA, CALL LIGHT IN REACH.
[2021-05-14 06:51] LABS: BASOPHILS ABSOLUTE AUTO 0.03 K/mm3 (0.00-0.23); BASOPHILS PERCENT AUTO 0 % (0-2); EOSINOPHILS PERCENT AUTO 0 % (0-6); Hematocrit 45.1 % (37.0-53.0); Hemoglobin 15.1 g/dL (13.5-17.5); IMMATURE GRAN ABSOLUTE AUTO 0.23 K/mm3 (0.00-0.10); IMMATURE GRAN PERCENT AUTO 2 % (0-1); LYMPHOCYTES PERCENT AUTO 4 % (21-46); MONOCYTES ABSOLUTE AUTO 0.33 K/mm3 (0.16-1.47); MONOCYTES PERCENT AUTO 3 % (4-13); Mean Corpuscular HGB 31.9 pg (26.0-34.0); Mean Corpuscular HGB Conc 33.5 g/dL (31.5-36.5); Mean Corpuscular Volume 95 fL (80-100); Mean Platelet Volume 11.1 fL (9.1-12.4); NEUTROPHILS ABSOLUTE AUTO 11.25 K/mm3 (1.96-9.15); NEUTROPHILS PERCENT AUTO 91 % (41-73); Platelet Count 160 K/mm3 (150-400); RDW Coefficient Variation 13.7 % (11.7-14.2); RDW Standard Deviation 47.8 fL (35.1-46.3); Red Blood Cell Count 4.74 M/mm3 (4.30-5.90); White Blood Cell Count 12.34 K/mm3 (4.00-11.30)
[2021-05-14 07:01] LABS: International Normalized Ratio 1.31; Prothrombin Time Results 13.5 Sec (9.7-11.5)
[2021-05-14 07:10] LABS: Alanine Aminotransfer (ALT/SGP 35 U/L (12-78); Albumin, Blood 2.4 g/dL (3.4-5.0); Albumin/Globulin Ratio 0.6 (0.8-1.8); Alk Phos 93 U/L (50-136); Anion Gap 5 mmol/L (6-16); Aspartate Aminotrans (AST/SGOT 20 U/L (12-37); Bilirubin, Total 0.5 mg/dL (0.1-1.0); Blood Urea Nitrogen 28 mg/dL (8-24); Bun/Creatinine Ratio 44.7 (12.0-20.0); CO2, Blood 29 mmol/L (21-32); Calcium, Blood 8.4 mg/dL (8.5-10.1); Chloride, Blood 105 mmol/L (98-108); Creatinine, Blood 0.63 mg/dL (0.60-1.20); Glomerular Filtration Rate >60 (60-); Glucose, Blood 241 mg/dL (70-99); Potassium, Blood 3.5 mmol/L (3.5-5.5); Sodium, Blood 139 mmol/L (136-145); Total Protein, Blood 6.4 g/dL (6.4-8.2)
--- NOTE | 2021-05-14 17:49 | NUR ---
PATIENT IS ALERT AND ORIENTED AND COOPERATIVE WITH CARE. ON 7L O2 VIA NC. TELE SHOWS PATIENT IS IN AFIB. DR. MOONEY SAYS THE PATIENT IS IN MULTIFOCAL AORTIC TACHYCARDIA. PLAN TO DC HOME WITH HIS TOMORROW. PT EVAL WAS PLACED THIS AFTERNOON. PRN ATIVAN ORDERED. IV MAGNESIUM GIVEN AND PATIENT REPORTS NO PALPATIONS AFTER ADMINISTRATION. WILL CONTINUE TO MONITOR
--- NOTE | 2021-05-15 04:10 | NUR ---
SHIFT SUMMARY PT WITH ACUTE RENAL FAILURE, HX OF STAGE III CA, HYPOTHYROID, SLEEP APNEA. MONITORED VIA TELEMETRY 85 A-FIB. PT ON HI-CARMENCITA 4LPM. PLAN INCLUDES CXR TUESDAY, PT EVAL BEFORE DISCHARGE HOME. IV IS 20G LEFT WRIST, SALINE LOCKED. LOVENOX FOR DVT PROPH. PT A&O X4. NO ACUTE CHANGES, VSS.
--- NOTE | 2021-05-15 05:41 | NUR ---
VTACH AT 0500, PT HAD AN 11 BEAT RUN OF VTACH, NOTIFIED BY Bukupe DEWAYNE MOMIN. RN ASSESSED PT WHO WAS LYING IN BED, TALKING ON THE PHONE TO HIS SPOUSE. PT DENIED CHEST PAIN, SOB, OR OTHER DISCOMFORT. RN NOTIFIED CHARGE NURSE AND WILL TO CONTINUE TO MONITOR.
[2021-05-15 05:52] LABS: Anion Gap 8 mmol/L (6-16); Blood Urea Nitrogen 27 mg/dL (8-24); CO2, Blood 28 mmol/L (21-32); Calcium, Blood 8.8 mg/dL (8.5-10.1); Chloride, Blood 105 mmol/L (98-108); Creatinine, Blood 0.56 mg/dL (0.60-1.20); Glomerular Filtration Rate >60 (60-); Glucose, Blood 160 mg/dL (70-99); Magnesium, Blood 2.3 mg/dL (1.6-2.4); Potassium, Blood 4.1 mmol/L (3.5-5.5); Sodium, Blood 141 mmol/L (136-145)
[2021-05-15] MEDS ORDERED: METO50ER PO (09:26)
[2021-05-15] MEDS ORDERED: BUSP10 PO (09:28)
[2021-05-15] MEDS ORDERED: PRED20 PO (09:29)
[2021-05-15] MEDS ORDERED: Diflucan100 MG PO (09:30)
--- NOTE | 2021-05-15 13:03 | NUR ---
PT ALERT ORIENTED X 4.PT ON 4L NC SATS IN 90S.PT ON TELE AFIB 75 WITH PVC PER TRAINING COORDINATOR.PT HAVE OPEN WOUND IN COCCIX ARE PRESENT ON ADMISSION,PT REFUSED MEPILEX,APPLIED CREAM,REDNESS TO SCROTUM,.PT IS DISCHARGE WITH OXYGEN AND PT USE OXYGEN AT BASELINE.PT HAS NO ACUTE CHANGES T/O THIS SHIFT.PT N BED,WAITING FOR TO COME.
== END 2021-05-15 15:19 | disposition home or self-care (01) | DRG 205 ==
LOC: ER 09:19 → ERHOLD 09:20 → PCU 09:20 → MEDS 05-11 14:00
PROVIDERS: Emergency Medicine; Internal Medicine; Pharmacist; Physician Assistant; ADMIT Family Medicine
DX: J70.0 Acute pulmonary manifestations due to radiation (principal); J96.21 Acute and chronic respiratory failure with hypoxia; I47.2 Ventricular tachycardia; C34.31 Malignant neoplasm of lower lobe, right bronchus or lung; I48.20 Chronic atrial fibrillation, unspecified; J96.11 Chronic respiratory failure with hypoxia; K59.00 Constipation, unspecified; I25.10 Atherosclerotic heart disease of native coronary artery without angina pectoris; Z20.822 Contact with and (suspected) exposure to COVID-19; G47.33 Obstructive sleep apnea (adult) (pediatric); D72.829 Elevated white blood cell count, unspecified; E03.9 Hypothyroidism, unspecified; E87.6 Hypokalemia; F41.9 Anxiety disorder, unspecified; T38.0X5A Adverse effect of glucocorticoids and synthetic analogues, initial encounter; T37.3X5A Adverse effect of other antiprotozoal drugs, initial encounter; R53.1 Weakness; Z79.01 Long term (current) use of anticoagulants; Z88.2 Allergy status to sulfonamides; Z88.1 Allergy status to other antibiotic agents; Z91.041 Radiographic dye allergy status; Z88.8 Allergy status to other drugs, medicaments and biological substances; Z98.890 Other specified postprocedural states; Z99.81 Dependence on supplemental oxygen; Z95.0 Presence of cardiac pacemaker; Z95.1 Presence of aortocoronary bypass graft; Z92.21 Personal history of antineoplastic chemotherapy; Z92.3 Personal history of irradiation; Z87.891 Personal history of nicotine dependence
CPT/HCPCS: 36415; 71045; 78580; 80048; 80053; 80069; 82330; 82803; 83605; 83735; 84145; 84484; 85025; 85610; 87040; 87070; 87205; 93005; 93010; 94760; 94761; 94762; 96374; 96375; 96376; 99285-25; A9270; A9540; G0378; J1650; J1745; J1956; J2060; J2930; J3370; J3430; J3475; J7030; J7050; U0004

== ENCOUNTER 2021-05-19 09:22 | Inpatient (IN) | payer OTHER, MEDICARE ==
[~2021-05-19] VITALS: Ht 182.9 cm; Wt 73.8 kg
[~2021-05-19 09:22] MED LIST changes: +BUSP10 PO; +Diflucan100 MG PO; +FOLI1 PO; +METO50ER PO; +NYSTRIT TOP
[2021-05-19 10:16] LABS: PO2 Arterial 74.6 mmHg (80-100); pH Blood Arterial 7.46 (7.35-7.45)
[2021-05-19 11:11] LABS: SARS-Cov-2 (COVID-19) PCR, MMC NEGATIVE (NEGATIVE)
[2021-05-19 13:11] LABS: BASOPHILS ABSOLUTE AUTO 0.05 K/mm3 (0.00-0.23); BASOPHILS PERCENT AUTO 1 % (0-2); EOSINOPHILS PERCENT AUTO 0 % (0-6); Hematocrit 48.1 % (37.0-53.0); Hemoglobin 15.9 g/dL (13.5-17.5); IMMATURE GRAN ABSOLUTE AUTO 0.33 K/mm3 (0.00-0.10); IMMATURE GRAN PERCENT AUTO 4 % (0-1); LYMPHOCYTES ABSOLUTE AUTO 0.63 K/mm3 (0.84-5.20); LYMPHOCYTES PERCENT AUTO 7 % (21-46); MONOCYTES ABSOLUTE AUTO 0.38 K/mm3 (0.16-1.47); MONOCYTES PERCENT AUTO 4 % (4-13); Mean Corpuscular HGB 32.3 pg (26.0-34.0); Mean Corpuscular HGB Conc 33.1 g/dL (31.5-36.5); Mean Corpuscular Volume 98 fL (80-100); Mean Platelet Volume 10.7 fL (9.1-12.4); NEUTROPHILS ABSOLUTE AUTO 7.98 K/mm3 (1.96-9.15); NEUTROPHILS PERCENT AUTO 85 % (41-73); Platelet Count 165 K/mm3 (150-400); RDW Standard Deviation 50.7 fL (35.1-46.3); Red Blood Cell Count 4.92 M/mm3 (4.30-5.90); White Blood Cell Count 9.37 K/mm3 (4.00-11.30)
[2021-05-19 13:38] LABS: Alanine Aminotransfer (ALT/SGP 39 U/L (12-78); Albumin, Blood 2.6 g/dL (3.4-5.0); Albumin/Globulin Ratio 0.6 (0.8-1.8); Alk Phos 104 U/L (50-136); Anion Gap 6 mmol/L (6-16); Aspartate Aminotrans (AST/SGOT 19 U/L (12-37); Bilirubin, Total 0.7 mg/dL (0.1-1.0); Blood Urea Nitrogen 28 mg/dL (8-24); Bun/Creatinine Ratio 45.5 (12.0-20.0); CO2, Blood 33 mmol/L (21-32); Calcium, Blood 9.4 mg/dL (8.5-10.1); Chloride, Blood 100 mmol/L (98-108); Creatinine, Blood 0.62 mg/dL (0.60-1.20); Globulin, Blood 4.5 g/dL (2.2-4.0); Glomerular Filtration Rate >60 (60-); Glucose, Blood 152 mg/dL (70-99); Potassium, Blood 4.4 mmol/L (3.5-5.5); Sodium, Blood 139 mmol/L (136-145); Total Protein, Blood 7.1 g/dL (6.4-8.2); Troponin I <0.015 ng/mL (0.000-0.040)
--- NOTE | 2021-05-19 18:45 | NUR ---
REPORT RECEIVED FROM ER NURSE NIDIA, AWAITING PATIENT ARRIVAL AT THIS TIME. SHE WAS NOTIFIED THAT SHIFT CHANGE WAS BEGINNING AT 1844. CLINICAL JUDGEMENT TO BEGIN TRANSFER AT 0.
--- NOTE | 2021-05-19 20:55 | NUR ---
ADMIT NOTE PT ADMITTED TO 308 FROM ED AT 1930. PT ADMITTED FOR PNEUMONITIS. HEART RATE AND BP WITHIN NORMAL LIMITS. 97% ON 6L O2 NC. PT GIVEN MEDICATIONS PER EMAR. RED PAPULES TO UPPER CHEST AREA. PT STS HE HAS SORE ON HIS BOTTOM BUT ONLY WANTS THEM LOOKED AT WHEN "CREAM" IS APPLIED. STS ONE IS HEART SHAPED NEAR THE BUTTOCK AND THE OTHER IS A QUARTER SHAPE WITHIN THE GLUTEAL CLEFT. PT TAKES HIS MEDICATION WITH YOGURT OR OATMEAL. WATER IS DIFFICULT FOR HIM TO SWALLOW. PT ABLE TO REPOSITION HIMSELF BUT DOES NOT GET OUT OF BED OR WALK AT THIS TIME.
--- NOTE | 2021-05-19 22:40 | NUR ---
MED TELE REPORTS OCCASIONAL A FIB, PVC'S AND A SMLL RUN OF V TACH OVER THE PAST FE HOURS. PT ASYMPTOMATIC. RESPS EVEN, O2 SAS IN THE 90'S WITH FACE MASK IN USE PT IS A MOUTH BREATHER. CALL LIGHT IN REACH. WILL CONTINUE TO MONITOR
--- NOTE | 2021-05-20 00:07 | NUR ---
PT ASKED TO BE SWITCHED BACK TO NASAL CANULA THE MASK NOISE WAS KEEPING HIM AWAKE. WENT FROM 10 L MASK BACK TO 6 L O2 NC. PT TOLERATING AT THIS TIME.
--- NOTE | 2021-05-20 03:14 | NUR ---
SHIFT SUMMARY PT TRANSFERRED FROM ER AT SHIFT CHANGE. POWER GLIDE ON L UPPER ARM. PT TAKES MEDS WITH YOGURT OR OATMEAL, WATER MAKES HIM CHOKE. HX OF AFIB, LUNG CA. JUST DISCHARGED FROM HOSPITAL THREE DAYS AGO. PT ON TELE AND HR IN THE 60'S WITH AFIB WHILE SLEEPING. HAD ONE RUN OF VTACH EARLIER IN THE NIGHT BUT WAS ASYMPTOMATIC. O2 SATS ARE 97-100 ON 6 L O2 VIA NC. WOUNDS TO HIS BUTTOCKS WERE NOT VISUALIZED PER PT REQUEST. PT DOES NOT AMBULATE AT THIS TIME. HE HAS A REGULAR DIET ORDERED. HE WILL NEED A SPUTUM COLLECTION AND HAS PT/OT AND SOCIAL SERVICE REFERRALS. SLEEPING SOUNDLY AT THIS TIME. CALL LIGHT WITHIN REACH. WILL CONTINUE TO MONITOR.
[2021-05-20 05:02] LABS: BASOPHILS ABSOLUTE AUTO 0.04 K/mm3 (0.00-0.23); BASOPHILS PERCENT AUTO 1 % (0-2); EOSINOPHILS ABSOLUTE AUTO 0.09 K/mm3 (0.00-0.68); EOSINOPHILS PERCENT AUTO 1 % (0-6); Hematocrit 42.6 % (37.0-53.0); IMMATURE GRAN ABSOLUTE AUTO 0.36 K/mm3 (0.00-0.10); IMMATURE GRAN PERCENT AUTO 5 % (0-1); LYMPHOCYTES ABSOLUTE AUTO 0.82 K/mm3 (0.84-5.20); LYMPHOCYTES PERCENT AUTO 11 % (21-46); MONOCYTES ABSOLUTE AUTO 0.35 K/mm3 (0.16-1.47); MONOCYTES PERCENT AUTO 5 % (4-13); Mean Corpuscular HGB 32.2 pg (26.0-34.0); Mean Corpuscular HGB Conc 32.9 g/dL (31.5-36.5); Mean Corpuscular Volume 98 fL (80-100); Mean Platelet Volume 10.4 fL (9.1-12.4); NEUTROPHILS ABSOLUTE AUTO 5.62 K/mm3 (1.96-9.15); NEUTROPHILS PERCENT AUTO 77 % (41-73); Platelet Count 140 K/mm3 (150-400); RDW Coefficient Variation 14.1 % (11.7-14.2); RDW Standard Deviation 51.3 fL (35.1-46.3); Red Blood Cell Count 4.35 M/mm3 (4.30-5.90); White Blood Cell Count 7.28 K/mm3 (4.00-11.30)
[2021-05-20 05:45] LABS: Alanine Aminotransfer (ALT/SGP 33 U/L (12-78); Albumin, Blood 2.1 g/dL (3.4-5.0); Albumin/Globulin Ratio 0.6 (0.8-1.8); Alk Phos 78 U/L (50-136); Anion Gap 4 mmol/L (6-16); Aspartate Aminotrans (AST/SGOT 20 U/L (12-37); Bilirubin, Total 0.6 mg/dL (0.1-1.0); Blood Urea Nitrogen 26 mg/dL (8-24); Bun/Creatinine Ratio 44.6 (12.0-20.0); CO2, Blood 31 mmol/L (21-32); Calcium, Blood 8.6 mg/dL (8.5-10.1); Chloride, Blood 105 mmol/L (98-108); Creatinine, Blood 0.58 mg/dL (0.60-1.20); Globulin, Blood 3.7 g/dL (2.2-4.0); Glomerular Filtration Rate >60 (60-); Glucose, Blood 115 mg/dL (70-99); Magnesium, Blood 2.2 mg/dL (1.6-2.4); Potassium, Blood 3.9 mmol/L (3.5-5.5); Sodium, Blood 140 mmol/L (136-145); Total Protein, Blood 5.8 g/dL (6.4-8.2)
--- NOTE | 2021-05-20 10:10 | NUR ---
Spoke with Pt's Primary RN [place]. Pt D/C from hospital a couple of days ago and has be readmitted. Pt is experiencing increased weakness and is on 6 L O2 via NC. O2 requirements increase go 8 or 9 L with exertion. Pt resting in bed with his eyes closed upon arrival. Pt awakes to gentle verbal stimuli. Pt denies pain at this time. Pt reports tiredness and wanting to sleep. Pt agreeable with this RN to return this afternoon when spouse is visiting. Palliative Care will remain available.
[2021-05-20 11:57] LABS: Base Excess Venous 8.9 mmol/L; Bicarbonate Venous 30.3 mmol/L (24.0-30.0); PCO2 Venous 58.2 mmHg (38-42); PO2 Venous 52.4 mmHg (38-42); pH Blood Venous 7.38 (7.34-7.37)
--- NOTE | 2021-05-20 12:11 | NUR ---
NURSE NOTE WAS NOTIFIED BY TELETECH ABOUT PATIENTS HEART RATE SUSTAINED IN THE 140S AND THIS RN NOTIFIED DR ABOUT HEART RATE. AWAITING ADDITIONAL ORDERS IF NEEDED.
--- NOTE | 2021-05-20 15:11 | NUR ---
Pt resting in bed with his eyes closed upon arrival. Pt's spouse Iwona at bedside. Spouse and this RN stepped out of Pt's room to have conversation in order to not disturb Pt. Engaged in therapeutic listening and validated concerns. Engaged in therapeutic discussion on planning for the future. Discussed the potential for Pt to frequent the hospital more and having discussion with PCP regarding options if this becomes to much of a burden for Pt. Answered questions and continued therapeutic listening. Iwona reports that Pt's current POLST does not align with his current wishes and needs to complete a new POLST. Provided new POLST and instructed on each section to complete and educated on options. Iwona reports plan to complete with Pt once Pt is awake. PT Pratik arrives to work with Pt. Ended visit. Palliative Care will remain available.
--- NOTE | 2021-05-20 18:16 | NUR ---
SHIFT SUMMARY PATIENT MEDICATED X1 FOR ANXIETY, DENIES NAUSEA AND PAIN. 6-8L/OXYMIZER TO MAINTAIN OXYGEN SATURATION ABOVE 90%. DESATS EASILY WITH ANY ACTIVITY INCLUDING EATING. PALLIATIVE CARE CONSULTED. PT WORKED WITH PATIENT. PATIENT NEEDS ASSISTANCE TO DANGLE, VERY WEAK. PLEASANT AND COOPERATIVE. AT BEDSIDE.
[2021-05-20 19:10] LABS: International Normalized Ratio 1.07; Prothrombin Time Results 11.2 Sec (9.7-11.5)
--- NOTE | 2021-05-21 04:55 | NUR ---
PT AAO. DENIES CHEST PAIN. O2 5L NC WITH OXYMIZER IN PLACE. SATS 94%. AFIB ON TELE WITH HR 91. C/O OF INSOMNIA DESPITE ALL HS MEDS. ANXIOUS AND RESTLESS DURING THE NIGHT. ATIVAN PRN GIVEN WITH GOOD EFFECT. PT ASLEEP IN BED QUIETLY. NO EVENTS ON TELE.
[2021-05-21 07:13] LABS: BASOPHILS ABSOLUTE AUTO 0.03 K/mm3 (0.00-0.23); BASOPHILS PERCENT AUTO 0 % (0-2); EOSINOPHILS ABSOLUTE AUTO 0.07 K/mm3 (0.00-0.68); EOSINOPHILS PERCENT AUTO 1 % (0-6); Hematocrit 39.5 % (37.0-53.0); Hemoglobin 13.2 g/dL (13.5-17.5); IMMATURE GRAN ABSOLUTE AUTO 0.31 K/mm3 (0.00-0.10); IMMATURE GRAN PERCENT AUTO 4 % (0-1); LYMPHOCYTES ABSOLUTE AUTO 0.76 K/mm3 (0.84-5.20); LYMPHOCYTES PERCENT AUTO 11 % (21-46); MONOCYTES ABSOLUTE AUTO 0.42 K/mm3 (0.16-1.47); MONOCYTES PERCENT AUTO 6 % (4-13); Mean Corpuscular HGB 32.5 pg (26.0-34.0); Mean Corpuscular HGB Conc 33.4 g/dL (31.5-36.5); Mean Corpuscular Volume 97 fL (80-100); Mean Platelet Volume 10.5 fL (9.1-12.4); NEUTROPHILS ABSOLUTE AUTO 5.49 K/mm3 (1.96-9.15); NEUTROPHILS PERCENT AUTO 78 % (41-73); Platelet Count 139 K/mm3 (150-400); RDW Coefficient Variation 13.7 % (11.7-14.2); Red Blood Cell Count 4.06 M/mm3 (4.30-5.90); White Blood Cell Count 7.08 K/mm3 (4.00-11.30)
[2021-05-21 07:29] LABS: International Normalized Ratio 1.06; Prothrombin Time Results 11.1 Sec (9.7-11.5)
[2021-05-21 07:50] LABS: Anion Gap 4 mmol/L (6-16); Blood Urea Nitrogen 15 mg/dL (8-24); Bun/Creatinine Ratio 27.2 (12.0-20.0); CO2, Blood 33 mmol/L (21-32); Chloride, Blood 104 mmol/L (98-108); Creatinine, Blood 0.55 mg/dL (0.60-1.20); Glomerular Filtration Rate >60 (60-); Glucose, Blood 109 mg/dL (70-99); Potassium, Blood 3.4 mmol/L (3.5-5.5); Sodium, Blood 141 mmol/L (136-145)
[2021-05-21 18:23] LABS: Source, Urine Catheter
--- NOTE | 2021-05-21 18:26 | NUR ---
SHIFT SUMMARY PATIENT DENIES PAIN AND NAUSEA. 6-8L/OXYMIZER TO MAINTAIN OXYGEN SATURATION ABOVE 90%. PATIETN VERY ACTIVITY INTOLERANT. PATIENT DROWSY TODAY AND DESIRING TO NAP. 7 BEAT RUN OF VTACH PER STRETCHER AND DRIER. PATIENT ASYMPTOMATIC. PATIENT'S CONCERNED THAT PATIENT IS OVERSEDATED IN AFTERNOON. KL[place] DISCONTINUED. PATIENT'S LATER CONCERNED THAT PATIENT IS TOO ANXIOUS AND HIS HEART RATE AND RESPIRATIONS ARE ELEVATED. PO ATIVAN GIVEN. PETTY PLACED. DR. RODRIGUEZ TO VISIT WITH PATIENT AND TO DISCUSS MEDICATION OPTIONS FOR TREATMENT.
[2021-05-21 18:54] LABS: Appearance, Urine Hazy (Clear); Bilirubin, Urine Neg (Neg); Blood, Urine 1+ (Neg); Color, Urine Yellow (P-Yellow); Glucose Qualitative, Urine Neg (Neg); Ketones, Urine Neg (Neg); Leukocyte Esterase, Urine Neg (Neg); Nitrite, Urine Neg (Neg); Protein, Urine Neg (Neg); Urobilinogen, Urine NORM (Normal)
[2021-05-21 19:09] LABS: Mucus Light (0-Heavy)
[2021-05-21 19:10] LABS: Red Blood Cells, Urine 0-2 /hpf (0-2); Squamous Epithelial Cells Few /hpf (Few); White Blood Cells, Urine 0-2 /hpf (0-5)
[2021-05-21 19:12] LABS: Bacteria Rare /hpf
--- NOTE | 2021-05-22 05:26 | NUR ---
BODY SHOP MANAGER SUMMARY PATIENT HAD A FAIR SHIFT WITH STABLE VITALS. HIS WAS COLD EVEN EITH BLANKETS HE WAS COVERED WITH EXTRA WARM BLANKETS, AND HIS O2 WAS AT 75% HE WAS PLACED ON NON REBREATHER MASK AND THE RESPIRATOORY THERAPIST WAS CALLED TO ASSESS PATIENT ALSO. HIS VITALS CHECKED AND DOCUMENTED. GOT A CALL FROM TELE MONITOR THAT HE WAS ON RUNNING AFIB IN 160S THAT WAS THE SAME TIME PATIENT WAS COLD. THE HOSPITALIST WAS INFORMED AND SHE ORDERED METOPROLOL 5MG. SEE ORDERS, SAME WAS ADMINISTERED. WILL CONTINUE TOMONITOR PATIENT.
[2021-05-22 07:57] LABS: International Normalized Ratio 1.42; Prothrombin Time Results 14.6 Sec (9.7-11.5)
[2021-05-22 08:04] LABS: Anion Gap 6 mmol/L (6-16); Blood Urea Nitrogen 15 mg/dL (8-24); Bun/Creatinine Ratio 28.8 (12.0-20.0); CO2, Blood 31 mmol/L (21-32); Chloride, Blood 104 mmol/L (98-108); Creatinine, Blood 0.52 mg/dL (0.60-1.20); Glomerular Filtration Rate >60 (60-); Glucose, Blood 165 mg/dL (70-99); Potassium, Blood 3.7 mmol/L (3.5-5.5); Sodium, Blood 141 mmol/L (136-145)
--- NOTE | 2021-05-22 15:05 | NUR ---
Late Entry from at 1347: Approached by patient's (Iwona Skaggs) that she wanted to take patient home. This conventional underwriter asked for clarification and states that she would like to take patient home with hospcie services. Discussed with that this conventional underwriter would start working on it immediately. Contacted [facility] Clinical Coordinator (Kiana Hooks) to determine the soonest availability for admission. Per Clinical Coordinator there is possibility to admit today- 05/22/2021 after hours. Patient was a [facility] patient who was transferred to [facility] on 05/19/2021 due to pneumonitis. Gathered supporting documentation for referral (face sheet, labs, imaging, progress notes, palliative care note, and H&P) and sent to [facility] Clinical Coordinator (Kiana Hooks) for review of hospice appropriatness. Will await further information from hospice acetylene cutter regarding the above. Lolly Macias Referral Liaison
--- NOTE | 2021-05-22 15:16 | NUR ---
Late Entry from 05/22/2021 at 1601: Received notification from [facility] Clinical Coordinator that patient is hospice appropriate and able to be admitted onto hospice services today- 05/22/2021 after hours. Relayed the above information to nurse foster care worker (Patrizia Fitzpatrick). Met with patient and briefly regarding hospice services and the plan for discharge today. Plan is for patient to discharge today at 1700 with a medical transport via gurney. Transportation has been arranged for patient with [facility] (Josh). Will continue to monitor and follow for discharge. Lolly Macias Referral Liaison
--- NOTE | 2021-05-22 18:08 | NUR ---
DISCHARGE NOTE- PG AND TELE DC'D PRIOR TO PT DISCHARGE HOME ON HOSPICE. PT WAS TAKEN VIA GURNEY TRANSPORT TO HIS HOME. SPOUSE WENT AHEAD AND GOT MEDICATIONS AND PREPARED FOR THE PT ARRIVAL. PT WAS ON 8L VIA HIGH FLOW NC AT THE TIME OF DISCHARGE. PT DECLINED TO BE DRESSED BUT STAFF ASSISTED HIM INTO A HOSPITAL GOWN FOR THE RIDE HOME ONLY, PT AGREED. PLAN IS FOR ADMIT TO HOSPICE TONIGHT. PT AND SPOUSE AWARE.
== END 2021-05-22 17:16 | disposition hospice, home (50) | DRG 205 ==
LOC: ER 09:22 → ERHOLD 09:23 → MEDS 09:23
PROVIDERS: Emergency Medicine; Family Medicine; Hospitalist; Nurse Practitioner Acute Care; Pharmacist; ADMIT Internal Medicine
DX: J70.2 Acute drug-induced interstitial lung disorders (principal); J96.21 Acute and chronic respiratory failure with hypoxia; E87.2 Acidosis; C34.90 Malignant neoplasm of unspecified part of unspecified bronchus or lung; J70.0 Acute pulmonary manifestations due to radiation; F41.0 Panic disorder [episodic paroxysmal anxiety]; Z66 Do not resuscitate; I25.10 Atherosclerotic heart disease of native coronary artery without angina pectoris; E03.9 Hypothyroidism, unspecified; Z20.822 Contact with and (suspected) exposure to COVID-19; G47.33 Obstructive sleep apnea (adult) (pediatric); F41.9 Anxiety disorder, unspecified; B37.9 Candidiasis, unspecified; Z88.2 Allergy status to sulfonamides; Z88.8 Allergy status to other drugs, medicaments and biological substances; Z88.1 Allergy status to other antibiotic agents; K21.9 Gastro-esophageal reflux disease without esophagitis; E78.5 Hyperlipidemia, unspecified; Z92.21 Personal history of antineoplastic chemotherapy; Z92.3 Personal history of irradiation; Z92.25 Personal history of immunosuppression therapy; Z95.1 Presence of aortocoronary bypass graft; Z98.890 Other specified postprocedural states; Z95.0 Presence of cardiac pacemaker; Z79.899 Other long term (current) drug therapy; Z91.041 Radiographic dye allergy status; I49.3 Ventricular premature depolarization
CPT/HCPCS: 36415; 36600; 71045; 80048; 80053; 81001; 82330; 82803; 83605; 83735; 83880; 84145; 84484; 85025; 85379; 85610; 87040; 93005; 93010; 94761; 94762; 96365; 96367; 96372; 96375; 97110; 97162; 99285-25; A9270; C1751; G0378; J0456; J1650; J2185; J3370; J3480; J7030; J7050; J7512; J7517; U0004